=== PATIENT | female | born 2000 | race Caucasian/White ===

== ENCOUNTER 2023-04-23 00:35 | Inpatient (IN) | payer SELFPAY, OTHER ==
[2023-04-23] VITALS (42 sets, daily range): BP systolic 114–152; BP diastolic 55–97; PULSE 80–155; RESP 16; TEMP 36.7–37.7; O2SAT 93–99
[2023-04-23 00:59] LABS: Absolute Lymphocyte Count 1.05 X10^3/uL (0.83-4.51); Absolute Neutrophil Count 8.5 X10^3/uL (2.0-7.7); Basophil# 0.01 X10^3/uL; Basophil% 0.1 % (0-1); Hematocrit 34.4 % (37-47); Hemoglobin 11.2 g/dL (12.0-15.0); Lymphocyte # 1.05 X10^3/ul (0.83-4.51); Lymphocyte % 10.4 % (19-41); Mean Corp Hgb Conc 32.6 g/dL (32-36); Mean Corpuscular Hgb 28.8 pg (27.0-32.0); Mean Corpuscular Volume 88.4 fL (81-99); Monocyte# 0.47 X10^3/uL; Monocyte% 4.7 % (0-10); NRBC Flagged by Analyzer 0 % (0-5); Neutrophil # 8.46 X10^3/uL (2.7-7.7); Neutrophil % 83.9 % (47-70); Platelet Count 234 K/mm3 (150-450); RBC Distribution Width CV 13.5 % (11.6-14.6); RBC Distribution Width SD 43.2 fl (35.1-43.9); Red Blood Count 3.89 M/mm3 (4.2-5.4); White Blood Count 10.1 K/mm3 (4.4-11.0)
[2023-04-23] MEDS: Lactated Ringers 1,000 ML 200 ML IV (01:00)
[2023-04-23] MEDS: fentaNYL-bupivacaine (epidural) 100 ML BAG EPIDURAL (02:18)
[2023-04-23 03:12] LABS: HIV - WCH Non-Reactive (Nonreactive); Syphilis Antibodies Non-reactive
[2023-04-23 03:25] LABS: Hepatitis C Antibody Non-Reactive (Nonreactive)
[2023-04-23] MEDS: Penicillin G 3,000,000 Units 50 ML 100 UNITS IV (05:24)
[2023-04-23] MEDS: Oxytocin 10 UNITS/ML Vial IM (06:37)
[2023-04-23] MEDS: Oxytocin 15 Units/NS 250ml 15 UNITS/250 ML IV.SOLN 83 UNITS IV (06:38)
--- NOTE | 2023-04-23 07:02 | HP.PCM.OB_ITS ---
HPI - General General Date of Admission: 04/23/23 HPI Narrative GOPI ANDRES, is a 22 F at 37.4 weeks gestation who presents as a transfer from [facility]. She had been there since 04/21/23 with SROM. She was transferred for maternal exhaustion and desire for epidural. She received all care there and was uneventful. Maternal Data Information BART Calculator Estimated Delivery Date Method Current WG Current Estimate 05/10/23 Manual 37w 4d PFSH PFSH Medical History no medical history Home Medications vit no.95-ferrous fumarate 28 mg-folic acid 800 mcg tablet () 1 tab PO DAILY 04/23/23 [History Last Taken 04/22/23 09:00 1 TAB] Allergy/AdvReac Type Severity Reaction Status Date / Time No Known Allergies Allergy Verified 04/23/23 01:00 Surgical History no surgical history Social History Smoking Status: Never smoker History Elective abortions Hx Para 0 Spontaneous abortions Hx # Term Pregnancies Ectopic pregnancies Hx # Pregnancies Multiple births # of living children ROS Eyes Eyes: Denies blurry vision, change in vision or spots in vision ENT HEENT: Denies dizziness or headache(s) Cardiovascular Cardiovascular: Denies abdominal pain, chest pain or dyspnea Respiratory/Chest Respiratory/Chest: Denies cough, dyspnea, shortness of breath at rest or shortness of breath with exertion Gastrointestinal Gastrointestinal: Denies abdominal pain, diarrhea or vomiting Genitourinary Genitourinary: Denies change in urinary stream, difficulty urinating or dysuria Musculoskeletal Musculoskeletal: Reports none Integumentary Integumentary: Denies rash Neurologic Neurologic: Denies dizziness, headache(s), memory loss or weakness Psychiatric Psychiatric: Reports none Vital Signs Vital Signs Vital Signs: 04/23/23 00:50 04/23/23 00:50 04/23/23 00:53 Temperature 98.9 F Temperature Source Temporal Pulse Rate Blood Pressure 138/93 H BP Systolic 138 BP Diastolic 93 Pulse Ox 04/23/23 00:53 04/23/23 01:48 04/23/23 01:48 Temperature Temperature Source Pulse Rate 105 H 155 H Blood Pressure BP Systolic BP Diastolic Pulse Ox 97 04/23/23 01:50 04/23/23 01:50 04/23/23 01:53 Temperature Temperature Source Pulse Rate 151 H 140 H Blood Pressure 152/90 H BP Systolic 152 BP Diastolic 90 Pulse Ox 04/23/23 01:53 04/23/23 01:56 04/23/23 01:56 Temperature Temperature Source Pulse Rate 133 H Blood Pressure 141/92 H BP Systolic 141 BP Diastolic 92 Pulse Ox 98 04/23/23 01:58 04/23/23 01:58 04/23/23 02:00 Temperature Temperature Source Pulse Rate 122 H Blood Pressure 145/92 H BP Systolic 145 BP Diastolic 92 Pulse Ox 98 04/23/23 02:00 04/23/23 02:03 04/23/23 02:03 Temperature Temperature Source Pulse Rate 126 H 129 H Blood Pressure BP Systolic BP Diastolic Pulse Ox 93 04/23/23 02:06 04/23/23 02:06 04/23/23 02:08 Temperature Temperature Source Pulse Rate 103 H Blood Pressure 132/62 H BP Systolic 132 BP Diastolic 62 Pulse Ox 97 04/23/23 02:08 04/23/23 02:10 04/23/23 02:10 Temperature Temperature Source Pulse Rate 114 H 107 H Blood Pressure 128/89 H BP Systolic 128 BP Diastolic 89 Pulse Ox 04/23/23 02:11 04/23/23 02:11 04/23/23 02:16 Temperature Temperature Source Pulse Rate 115 H Blood Pressure 118/55 L BP Systolic 118 BP Diastolic 55 Pulse Ox 96 04/23/23 02:16 04/23/23 02:16 04/23/23 02:21 Temperature Temperature Source Pulse Rate 116 H Blood Pressure 122/97 H BP Systolic 122 BP Diastolic 97 Pulse Ox 97 04/23/23 02:21 04/23/23 02:21 04/23/23 02:26 Temperature Temperature Source Pulse Rate 118 H Blood Pressure 126/82 H BP Systolic 126 BP Diastolic 82 Pulse Ox 96 04/23/23 02:26 04/23/23 02:26 04/23/23 02:26 Temperature Temperature Source Pulse Rate 101 H 106 H Blood Pressure BP Systolic BP Diastolic Pulse Ox 97 04/23/23 02:31 04/23/23 02:31 04/23/23 02:31 Temperature Temperature Source Pulse Rate 100 98 Blood Pressure 114/57 L BP Systolic 114 BP Diastolic 57 Pulse Ox 04/23/23 02:31 04/23/23 02:37 04/23/23 02:37 Temperature Temperature Source Pulse Rate 98 Blood Pressure 148/67 H BP Systolic 148 BP Diastolic 67 Pulse Ox 97 04/23/23 02:36 04/23/23 02:57 04/23/23 02:57 Temperature Temperature Source Pulse Rate 126 H Blood Pressure 131/63 H BP Systolic 131 BP Diastolic 63 Pulse Ox 97 04/23/23 02:57 04/23/23 02:57 04/23/23 03:34 Temperature 99.2 F H Temperature Source Temporal Pulse Rate Blood Pressure 114/62 BP Systolic 114 BP Diastolic 62 Pulse Ox 04/23/23 03:34 04/23/23 03:34 04/23/23 03:34 Temperature Temperature Source Temporal Pulse Rate 108 H Blood Pressure BP Systolic BP Diastolic Pulse Ox 99 04/23/23 03:34 04/23/23 04:52 04/23/23 04:53 Temperature 99.7 F H Temperature Source Temporal Pulse Rate Blood Pressure 119/58 L BP Systolic 119 BP Diastolic 58 Pulse Ox 04/23/23 04:53 04/23/23 04:52 04/23/23 05:58 Temperature 99.8 F H Temperature Source Pulse Rate 98 81 Blood Pressure BP Systolic BP Diastolic Pulse Ox 04/23/23 05:58 04/23/23 06:29 04/23/23 06:29 Temperature Temperature Source Pulse Rate 96 Blood Pressure BP Systolic BP Diastolic Pulse Ox 99 99 04/23/23 07:01 04/23/23 07:01 Temperature Temperature Source Pulse Rate 103 H Blood Pressure 139/75 H BP Systolic 139 BP Diastolic 75 Pulse Ox Physical Exam Const alert, oriented x3 and no apparent distress General Appearance: cooperative Orientation / Consciousness: awake Exam Limitations: no limitations HEENT normocephalic Head and Scalp: normal to inspection Eyes General Eye: normal appearance of both eyes Neck full ROM and no lymphadenopathy Lymph Lymphatic: no lymphadenopathy noted Chest inspection of chest normal Resp normal respiratory effort, normal air movement and clear to auscultation bilaterally Effort and Inspection: able to speak in complete sentences and symmetric chest movement Cardio regular rate and regular rhythm GI normal to inspection, nondistended, normoactive bowel sounds Manual OB Exam: presentation cephalic Amniotic Fluid: clear amniotic fluid Back/Spine normal ROM Extremity full ROM and no calf tenderness Skin no rashes or lesions noted General Skin Exam: no breakdown Neuro oriented x3 and CN's II-XII intact bilaterally Psych mental status grossly normal and thought process normal Labs Labs Labs: Blood Type A POSITIVE Antibody Screen NEGATIVE Hct 34.4 % (37-47) L Hgb 11.2 g/dL (12.0-15.0) L Syphilis Total Ab Non-reactive HIV 1&2 Antibody Non-Reactive (Nonreactive) Assessment & Plan (1) 37 weeks gestation of : (2) Spontaneous rupture of amniotic membranes: (3) Prolonged rupture of membranes, greater than 24 hours, delivered: (4) Positive GBS test: (5) Nulliparity: (6) Active labor at term: PLAN: Plan I assessed patient at bedside. Admit to labor and delivery Routine labs GBS positive- treated adequately at [facility] with Ampicillin- Start PCN 5 million units IV x 1 now CE 10 cm with bulging forebag of fluid Verbal consent obtained and AROM for large amount of clear fluid. Patient began pushing but became too exhausted and was requesting epidural. Cat. 1 tracing. NST reactive. Patient for epidural anesthesia Dr. Quigley aware of admission and is collaborating physician
--- NOTE | 2023-04-23 07:13 | OP.PCM_ITS ---
Assessment & Plan (1) Active labor at term: (2) 37 weeks gestation of : (3) (spontaneous vaginal delivery): (4) Laceration, obstetrical, first degree: Maternal Data Information BART Calculator Estimated Delivery Date Method Current WG Current Estimate 05/10/23 Manual 37w 4d Vaginal Delivery Maternal Presentation Maternal Presentation: Active Labor and Spontaneous Rupture of Membranes Maternal Presentation: at 37.4 weeks presented as a transfer patient from [facility]. She was there for SROM and Spontaneous onset of labor since 04/21/23. Transferred for maternal exhaustion and desire for epidural. Operative Information Date of Procedure: 04/23/23 Pre-Operative Diagnosis: SROM, Term gestation, Spontaneous onset of labor Post-Operative Diagnosis: , Live male Surgery / Procedure Performed: Spontaneous Vaginal Delivery Type of Anesthesia: Epidural Drain: [place] to straight drain Estimated Blood Loss: 200 Time of Delivery: 06:34 Findings Description of Procedure: Called to patient's room for pushing. Patient pushing well with contractions. Comfortable with epidural. With maternal effort, head delivered over intact perineum followed immediately by anterior shoulder and remainder of body without traction. Nuchal cord around ankle and by shoulder/ under arm easily reduced. Vigorous male placed on maternal abdomen and was attended to by nursing staff. Patient desired prolonged delay of cord clamping. IM and IV Pitocin given for active management of the third stage of labor. Placenta delivered spontaneously and intact. 3 vessel cord was clamped and cut after prolonged delay by FOB and infant placed immediately skin to skin. First degree vaginal laceration repaired in usual fashion. Perineum intact. Hemostasis obtained. Fundus firm 2 below U. Vaginal sweep completed by myself. EBL [address] cc. APGARS 9/9. Dr. Quigley notified of delivery. Presentation: Vertex Amniotic Membrane Rupture Type: Spontaneous Time of Membrane Rupture: 2100 on 04/21/23 Amniotic Fluid Description: Clear Placental Delivery Description: Spontaneous Placenta Disposition: [facility] Cord Vessel Description: 3 Vessels Cord Entanglement: - (Around foot and shoulder x 1 loose) Nuchal Cord Compression: Without compression Infant A Gender: Male (1 minute): 9 (5 minute): 9 Delayed Cord Clamping: Yes Post Vaginal Delivery Medications Given After Delivery: IV Pitocin and IM Pitocin Episiotomy Description: None Laceration: 1st degree Complication Complications: None
[2023-04-23] MEDS: Acetaminophen 500 MG Tablet 1000 MG PO (13:07)
--- NOTE | 2023-04-23 13:54 | NURSING ---
Marcelina PELAEZM made aware of blood pressure of 144/88. recovery vital signs reviewed and order obtained to obtain pree panel labs.
[2023-04-23 14:21] LABS: Hematocrit 32.9 % (37-47); Hemoglobin 10.8 g/dL (12.0-15.0); Mean Corp Hgb Conc 32.8 g/dL (32-36); Mean Corpuscular Volume 88.2 fL (81-99); Mean Platelet Vol. 9.4 fl (6.2-12.0); Platelet Count 217 K/mm3 (150-450); RBC Distribution Width CV 13.7 % (11.6-14.6); RBC Distribution Width SD 44.2 fl (35.1-43.9); Red Blood Count 3.73 M/mm3 (4.2-5.4); White Blood Count 9.4 K/mm3 (4.4-11.0)
[2023-04-23 14:34] LABS: AST(SGOT) 38 U/L (15-37); Alanine Aminotransfer ALT/SGPT 34 U/L (13-56); Creatinine, Serum 0.68 mg/dL (0.55-1.02); EST Glomerular Filtration Rate 113 mL/min (>60); Est Glom Filt Rate - Afr Amer 137 mL/min (>60); Uric Acid 6.9 mg/dL (2.6-6.0)
[2023-04-24 00:05] VITALS: BP 102/57; PULSE 82; RESP 16; TEMP 36.6
[2023-04-24] MEDS: Acetaminophen 500 MG Tablet 1000 MG PO ×2 (02:23→15:06)
[2023-04-24 04:10] VITALS: BP 105/64; PULSE 75; RESP 16; TEMP 36.3
--- NOTE | 2023-04-24 06:44 | PCM.PN.OB ---
Subjective Subjective Patient seen at bedside. Ambulating and voiding without difficulty. Denies headache, dizziness, CP, or SOB. Lochia decreasing. with minimal support. Desires discharge home today. Objective Data Objective Data Vital Signs: Vital Signs Temp Pulse Resp BP Pulse Ox O2 Del Method 97.4 F L 75 16 105/64 99 Room Air 04/24/23 04:10 04/24/23 04:10 04/24/23 04:10 04/24/23 04:10 04/23/23 06:29 04/24/23 00:05 Oxygen Delivery Method Room Air Intake & Output: Intake and Output for Last 24 Hours 04/22/23 04/23/23 04/24/23 23:59 23:59 23:59 Intake Total 1405 / 1405 Output Total 1575 / 1575 Balance -170 / -170 Lab / Micro Data 04/23/23 14:10 04/23/23 14:10 Labs: Laboratory Results - last 24 hr 04/23/23 14:10: WBC 9.4, RBC 3.73 L, Hgb 10.8 L, Hct 32.9 L, MCV 88.2, MCH 29.0, MCHC 32.8, RDW Std Deviation 44.2 H, RDW Coeff of [place]bin 13.7, Plt Count 217, MPV 9.4, Creatinine 0.68, Est GFR (MDRD) Af Amer 137, Est GFR (MDRD) Non-Af 113, Uric Acid 6.9 H, AST 38 H, ALT 34 ROS Eyes Eyes: Denies blurry vision, change in vision or spots in vision ENT HEENT: Denies dizziness or headache(s) Cardiovascular Cardiovascular: Denies abdominal pain, chest pain or dyspnea Respiratory/Chest Respiratory/Chest: Denies cough, dyspnea, shortness of breath at rest or shortness of breath with exertion Gastrointestinal Gastrointestinal: Denies abdominal pain, diarrhea or vomiting Genitourinary Genitourinary: Denies change in urinary stream, difficulty urinating or dysuria Musculoskeletal Musculoskeletal: Reports none Integumentary Integumentary: Denies rash Neurologic Neurologic: Denies dizziness, headache(s), memory loss or weakness Physical Exam Const alert and no apparent distress General Appearance: cooperative and comfortable Exam Limitations: no limitations HEENT normocephalic Eyes General Eye: normal appearance of both eyes Neck full ROM General: normal visual inspection Chest Chest: symmetrical chest wall rise Resp normal respiratory effort and normal air movement Effort and Inspection: symmetric chest movement Auscultation: clear to auscultation bilaterally Cardio regular rate and regular rhythm GI normal to inspection, nondistended, normoactive bowel sounds Back/Spine normal ROM Extremity full ROM and no calf tenderness General Extremity: normal exam except as noted Skin no rashes or lesions noted Neuro CN's II-XII intact bilaterally Psych mental status grossly normal Assessment & Plan (1) (spontaneous vaginal delivery): (2) Laceration, obstetrical, first degree: PLAN: Plan PPD 1 Routine care support D/C home with follow up at [facility] for PP
--- NOTE | 2023-04-24 06:46 | DCINST_ITS ---
Discharge Instructions Diet Discharge Diet: No restrictions Activity May resume sexual activity in: 6-8 weeks Weight Bearing Status: Weight bearing as tolerated Dressing / Incision Call your doctor if you observe: Fever of 101 or Higher, Inability to urinate, Using more than 1 pad per hour, Shortness of breath, Chest pain, Calf discomfort and Uncontrolled pain Follow Up Care Please Follow Up With: Marcelina Clarke CNM When: 2 weeks virtual visit/ 6 weeks in office Test Results: Test results from this visit will be discussed in further detail at your follow- up appointment, if applicable. Discharge Plan Admission Admit Date/Time: 04/23/23 00:35 Primary Reason for Your Visit: Labor and Delivery Attending Provider: Marcelina Clarke Primary Care Provider: Edin Mclean Discharge Orders/Prescriptions Prescriptions: Continued PNV cmb#95-ferrous fumarate-FA [] 28 mg iron- 800 mcg tablet 1 tab PO DAILY Referrals / Follow Up: Marcelina Clarke CNM [Med Staff - [facility] Prof] - Edin Mclean MD [Primary Care Provider] - Disposition Disposition (needs filled in before D/C Order can be placed): Home, Self Care
[2023-04-24 09:58] VITALS: BP 123/85; PULSE 83; RESP 18; TEMP 36.9
[2023-04-24 15:09] VITALS: BP 111/74; PULSE 82; RESP 18; TEMP 36.8
[2023-04-25 05:16] VITALS: BP 130/81; PULSE 87; O2SAT 92
== END 2023-04-24 16:17 | disposition home or self-care (01) | DRG 807 ==
PROVIDERS: Admitting Provider Advanced Practice Midwife; PCP Family Medicine; Visit Provider Advanced Practice Midwife
DX: O42.92 Full-term premature rupture of membranes, unspecified as to length of time between rupture and onset of labor (principal); Z37.0 Single live birth; O69.82X0 Labor and delivery complicated by other cord entanglement, without compression, not applicable or unspecified; O70.0 First degree perineal laceration during delivery; O99.824 Streptococcus B carrier state complicating childbirth; O75.81 Maternal exhaustion complicating labor and delivery; Z3A.37 37 weeks gestation of pregnancy
CPT/HCPCS: 59025; 59050; 82565; 84450; 84460; 84550; 85025; 85027; 86703; 86780; 86803; 86850; 86900; 86901; 99221; J7120; G0378